=== PATIENT | female | born 1980 | race Caucasian/White ===

== ENCOUNTER 2018-05-13 19:15 | Inpatient (IN) | payer OTHER ==
[~2018-05-13] VITALS: Ht 167.6 cm; Wt 108.9 kg
[~2018-05-13 19:15] MED LIST: CIPROFLOXACIN500 M1 PO; CIPROFLOXACIN500 M3 PO; DIAMOX; LORCET PLUS 7.51 TA1 PO; NOHOMEMEDICATIONS; NORCO 5-325 TA1 EACH PO; PERCOCET 5-3251 EACH PO; PERCOCET 7.5-31 EACH PO; PHENERGAN 25 MG25 M1 PO; TAMSULOSIN HCL0.4 MG PO; TRAMADOL 50 MG50 MG; ZOFRAN4 MG PO
[2018-05-13 19:25] VITALS: BP 152/104
[2018-05-13 19:28] LABS: URINE BILIRUBIN NEGATIVE (Negative); URINE BLOOD TRACE (Negative); URINE CLARITY CLEAR; URINE COLOR YELLOW; URINE GLUCOSE-RANDOM NEGATIVE (Negative); URINE KETONES NEGATIVE (Negative); URINE LEUKOCYTES-REFLEX 1+ (Negative); URINE NITRITE-REFLEX POSITIVE (Negative); URINE PROTEIN 1+ (Negative); URINE UROBILINOGEN 0.2 E.U./dl (0.2-1.0)
[2018-05-13] MEDS ORDERED: AMITRIPTYLINE H25 M3 PO (19:30)
[2018-05-13] MEDS ORDERED: ASPIR 8181 MG PO (19:30)
[2018-05-13] MEDS ORDERED: BYSTOLIC10 MG PO (19:30)
[2018-05-13] MEDS ORDERED: AMBIEN 5 MG TABL5 M1 PO (19:31)
[2018-05-13 19:49] LABS: HEMATOCRIT 44.1 % (37.0-47.0); HEMOGLOBIN 15.1 gm/dL (12.0-15.0); MCH 29.1 pg (26.0-34.0); MCHC 34.2 g/dL (28.0-37.0); MCV 85.1 fL (80.0-100.0); MPV 6.4 fl. (7.2-11.1); NUCLEATED RBCS 0 /100WBC; PLATELET COUNT* 271 thou/uL (150-400); RBC 5.18 mil/uL (4.20-5.00); RDW-CV 14.2 % (10.5-14.5)
[2018-05-13 19:53] LABS: SQUAMOUS 4-10 Moderate /LPF (0-3)
[2018-05-13 19:54] LABS: BACTERIA-REFLEX >30 Many /HPF (None Seen); CASTS None Seen /LPF (None Seen); CRYSTALS None Seen /LPF (None Seen); URINE RBC None Seen /HPF (0-2); URINE WBC-REFLEX 6-15 Few /HPF (0-5)
[2018-05-13 19:59] LABS: CALCIUM 8.9 mg/dL (8.5-10.1); CREATININE 1.7 mg/dL (0.6-1.3); POTASSIUM 4.6 mmol/L (3.5-5.1)
[2018-05-13 20:03] LABS: TOTAL BILIRUBIN 0.7 mg/dL (<0.1-1.0); TOTAL PROTEIN 7.9 g/dL (6.4-8.2)
[2018-05-13 20:19] LABS: ABSOLUTE EOSINOPHILS 0.1 thou/uL (0.0-0.7); ABSOLUTE LYMPHOCYTES 0.3 thou/uL (0.8-5.3); ABSOLUTE MONOCYTES 0.7 thou/uL (0.0-1.2); PLATELET ESTIMATE ADEQUATE
[2018-05-13 22:25] VITALS: BP 144/68
[2018-05-13 23:13] VITALS: BP 152/91
--- NOTE | 2018-05-13 23:59 | NUR ---
PT ADMITTED TO UNIT WITH UTI. PT IS ALERT AND ORIENTED THIS SHIFT. PT IS ON ROOM AIR. PT C/O NAUSEA, ZOFRAN GIVEN ORDERED. PT HAS A FEVER ABOVE 100.4, TYLENOL GIVEN ORDERED. PT TEMPT HAS DECREASED FROM 101.4 TO 100.9. PT IS CURRENTLY RESTING IN BED. FALL RISK PRECAUTIONS IN PLACE. WILL CONTINUE TO MONITOR.
--- NOTE | 2018-05-14 05:18 | NUR ---
pt remained alert and oriented. pt temp was elevated, most recent temp was 100.0 degress, tylenol given as ordered. fall risk precautions in place. hourly rounding completed. will continue to monitor.
[2018-05-14 07:20] VITALS: BP 128/79
[2018-05-14 15:39] VITALS: BP 137/87
[2018-05-14 15:47] LABS: INFLUENZA A ANTIGEN None Detected (None Detect); INFLUENZA B ANTIGEN None Detected (None Detect)
--- NOTE | 2018-05-14 16:21 | NUR ---
ASSUMED CARE OF PATIENT AFTER REPORT AT APPROX 0730. ALERT AND ORIENTED X4. ASSESSMENT COMPETED AND CHARTED. VSS ON ROOM AIR. NO COMPLAINTS OF NAUSEA OR SOA. PAIN HAS BEEN MINIMAL AND MANAGED WITH MEDICATION. FEVER MANAGED WITH TYLENOL. FLUIDS AND ANTIBIOTICS INFUSED ORDERED. FLU SWAB OBTAINED AND SENT TO LAB, PENDING RESULTS. ID CONSULTED. HOURLY ROUNDS COMPLETED. PATIENT EDUCATED ON FALL RISKS AND SIGNED FALLED AGREEMENT. UP AD SOLO IN THE ROOM. CALL LIGHT WITHIN REACH. NURSING WILL CONTINUE TO MONITOR.
[2018-05-14 19:47] VITALS: BP 133/67
[2018-05-15 04:22] LABS: ABSOLUTE EOSINOPHILS 0.3 thou/uL (0.0-0.7); ABSOLUTE LYMPHOCYTES 1.9 thou/uL (0.8-5.3); ABSOLUTE MONOCYTES 0.6 thou/uL (0.0-1.2); ABSOLUTE NEUTROPHILS 2.1 thou/uL (1.6-8.1); BASOPHILS 0.4 %; EOSINOPHILS 5.5 %; HEMATOCRIT 36.7 % (37.0-47.0); LYMPHOCYTES 38.8 %; MCH 29.4 pg (26.0-34.0); MCHC 34.1 g/dL (28.0-37.0); MCV 86.1 fL (80.0-100.0); MONOCYTES 13.1 %; MPV 6.7 fl. (7.2-11.1); NUCLEATED RBCS 0 /100WBC; POLYS 42.2 %; RBC 4.26 mil/uL (4.20-5.00); RDW-CV 14.3 % (10.5-14.5); WBC 4.9 thou/uL (4.0-11.0)
--- NOTE | 2018-05-15 04:51 | NUR ---
PT REMAINED ALERT AND ORIENTED THIS SHIFT. PT HAD NO NAUSEA OR VOMITING THIS SHIFT. TYLENOL GIVEN FOR LOW GRADE TEMP. FALL RISK PRECAUTIONS IN PLACE. HOURLY ROUNDING COMPLETED. WILL CONTINUE TO MONITOR.
[2018-05-15 04:55] LABS: CALCIUM 7.6 mg/dL (8.5-10.1); CREATININE 1.4 mg/dL (0.6-1.3); POTASSIUM 4.2 mmol/L (3.5-5.1)
[2018-05-15 05:01] LABS: HEMOGLOBIN 12.5 gm/dL (12.0-15.0); PLATELET COUNT* 178 thou/uL (150-400)
[2018-05-15 07:20] VITALS: BP 128/68
--- NOTE | 2018-05-15 14:38 | CON ---
[address] [address] CONSULTATION Name: LESLYE SHUKLA Room: [address] IN ..#: [id number] Admission: 05/13/18 Attend Phys: Adele Moncada MD Discharge: Date of : 84 Report #: [id number] THIS REPORT FOR: //name// CC: Adele Mattson DATE OF SERVICE: 05/14/2018 CONSULTATION: Infectious diseases. HISTORY OF PRESENT ILLNESS:Padmini Shukla is a 37-year-old white female who comes to the ER yesterday with high fevers, chills, body aches and nausea and vomiting to the point where she cannot keep any food or liquids down. Workup showed fever, leukocytosis and pyuria. The patient has been in the hospital and given antibiotic therapy. Infectious disease consultation was requested. The patient works as an office nurse. She notes there has been a lot of gastrointestinal illness coming into the office the last week or so. Her 12-year-old daughter had a similar illness with nausea and vomiting for 24 hours a few days before the patient became symptomatic. The patient also gives a history of complex urinary tract infections in 2016. The patient had a number of stones. She had obstruction, stents, repeated infections, antibiotics and was finally treated by Dr. Miller in 2016 with a course of infusion therapy for approximately 90 days. Since then, the patient has not had any further urinary tract issues. The patient notes that she did not have typical frequency, dysuria, flank pain when she had her UTIs in 2016. PAST MEDICAL HISTORY: Otherwise remarkable for section and diagnosis of pseudotumor cerebri. ALLERGIES: She has no drug allergies. FAMILY HISTORY: Noncontributory. SOCIAL HISTORY: The patient is single, but has had the same partner for 18 years. They have a 12-year-old daughter together. She does not use tobacco, alcohol nor drugs. She works as a medical office nurse. REVIEW OF SYSTEMS: General: The patient notes fevers, chills, sweats, which began the day that she came to the ER. She had muscle aching weakness and malaise. The patient denies headache, sinus congestion, sore throat, trouble swallowing. The patient denies stiff neck. She denies cough, chest pain, or shortness of breath. The patient denies syncope, angina, palpitations. The patient had the nausea and vomiting. No hematemesis. No abdominal pain. She had normal bowel movements up until the day prior [place] [address] CONSULTATION Name: LESLYE SHUKLA Room: [address]#: [id number] Admission: 05/13/18 Attend Phys: Adele Moncada MD Discharge: Date of : 84 Report #: [id number] has not had a bowel movement since. The patient denies any urinary symptoms. No frequency or dysuria. No flank pain. Her menses are her usual minimal irregular periods. She has a hormone eluding IUD for contraception. Extremities are aching, but otherwise no complaints. PHYSICAL EXAMINATION: GENERAL: The patient appears her stated age, alert, oriented, comfortable, not in any distress. VITAL SIGNS: Show maximum measured temperature 38.6. The patient was a bit flushed, but afebrile at the time of my examination. SKIN: Shows no rash, lesion or exanthem. ENT: Negative. NECK: Supple. CARDIOVASCULAR: Heart sounds normal. LUNGS: Clear. Flanks are not tender. ABDOMEN: Belly is obese, soft, not tender. EXTREMITIES: Unremarkable. LABORATORY DATA: White count is 13.0, hemoglobin 15, hematocrit 44%, platelet 271,000. Electrolytes normal. BUN 16, creatinine 1.7. Liver function tests are normal except for ALT elevation slightly at 73. Urinalysis showed positive leukocyte esterase and positive nitrite on the dipstick. Microscopic showed many bacteria and 6-[address] of the abdomen per renal stone protocol showed cortical scarring of both kidneys, left greater than right. There are multiple nonobstructing stones. The microbiology laboratory reports blood cultures x 2 are negative at 24 hours. The urine culture reports are still pending. ASSESSMENT AND PLAN: In summary, we have a patient who presents with fever, nausea, vomiting, leukocytosis and mild pyuria. She has a history of exposure to GI diseases. She has a history of severe urinary tract infection with stones in 2016. At this time, the patient's symptoms seem more suggestive of acute gastroenteritis. She gives no urinary symptoms. Although, the urine has some pyuria, it is not impressive. The patient notes that she had very little urine output, so it is difficult to give a clean midstream specimen. The CT scan does not show any inflammatory changes around the kidney, just previous scarring consistent with her history. For now, I think it is reasonable to treat the patient with antibiotics pending results of blood and urine cultures. I think we can use Rocephin. The patient did have resistant bacteria, but that was almost 3 years ago. With the season, high fever, I think that influenza swab would be appropriate. The patient did [place] [address] CONSULTATION Name: LESLYE SHUKLA Room: [address] IN [facility]#: [id number] Admission: 05/13/18 Attend Phys: Adele Moncada MD Discharge: Date of : 84 Report #: [id number] If this is a viral gastroenteritis, that will probably resolve in 24-48 hours. We will make sure that the patient does not have sepsis. We will want to followup white count and await results of cultures. If everything looks good, I anticipate the patient may be able to go home tomorrow on no antibiotics. <ELECTRONICALLY SIGNED> By: Amador Marinelli MD 05/15/18 [id number] [id number] Marinelli MD /nt
[2018-05-15 16:12] VITALS: BP 118/77
--- NOTE | 2018-05-15 16:37 | NUR ---
ASSUMED CARE OF PATIENT AFTER REPORT AT APPROX 0730. ALERT AND OREINTED X4. ASSESSMENT COMPLETED AND CHARTED. VSS ON ROOM AIR. NO COMPLAINTS OF PAIN, NAUSEA, OR SOA. FLUIDS AND ANTIBIOTICS INFUSED ORDERED. PATIENT UP AD SOLO. TOOK A SHOWER TODAY. RESTED COMFORTABLY IN BED THROUGHOUT SHIFT. HOURLY ROUNDS COMPLETED. CALL LIGHT WITHIN REACH. NURSING WILL CONTINUE TO MONITOR.
[2018-05-15 19:39] VITALS: BP 119/62
--- NOTE | 2018-05-16 05:47 | NUR ---
PT REMAINED ALERT AND ORIENTED THIS SHIFT. PT SLEPT THROUGHOUT THE NIGHT. FALL RISK PRECAUTIONS IN PLACE. HOULRY ROUNDING COMPLETED. WILL CONTINUE TO MONITOR.
[2018-05-16 08:00] VITALS: BP 126/62
[2018-05-16] MEDS ORDERED: CEFDINIR300 MG PO (10:38)
[2018-05-16 10:39] VITALS: BP 126/62
--- NOTE | 2018-05-16 14:03 | NUR ---
PATIENT LEFT UNIT AT 1130. ALERT AND ORIENTED X4. UP AD SOLO IN ROOM. IV DC'D. DENIES NEED FOR PAIN OR NAUSEA MEDICATION. TOLERATING DIET. ALL PERSONAL ITEMS LEFT WITH PATIENT. DISCHARGE INSTRUCTIONS, PRESCRIPTIONS, AND NEW MEDICATION INFORMATION SENT WITH PATIENT. VSS ON ROOM AIR. HOURLY ROUNDS HAVE BEEN MAINTAINED THROUGHOUT SHIFT. LEFT WITH VIA CAR.
[2018-05-16 14:35] VITALS: BP 126/62
== END 2018-05-16 11:30 | disposition home or self-care (01) | DRG 682 ==
LOC: M.ERS 19:15 → M.TBA-ER 21:18 → M.ORTHSURG 21:18
PROVIDERS: Emergency Medicine; Internal Medicine; Internal Medicine Infectious Disease; ADMIT Internal Medicine
DX: N17.9 Acute kidney failure, unspecified (principal); R65.11 Systemic inflammatory response syndrome (SIRS) of non-infectious origin with acute organ dysfunction; N39.0 Urinary tract infection, site not specified; A08.4 Viral intestinal infection, unspecified; Z96.0 Presence of urogenital implants; R31.9 Hematuria, unspecified; Z98.891 History of uterine scar from previous surgery; Z79.1 Long term (current) use of non-steroidal anti-inflammatories (NSAID); Z79.899 Other long term (current) drug therapy; Z87.442 Personal history of urinary calculi